=== PATIENT | female | born 1975 | race Two or more races ===

== ENCOUNTER 2020-06-29 14:41 | Outpatient (CLI) | payer MEDICARE, MEDICAID, SELFPAY ==
--- NOTE | ~2020-06-29 | US_ITS ---
EXAMINATION: US soft tissue chest DATE: 06/29/2020 15:07 INDICATION: Left supraclavicular lump. TECHNIQUE: Multiple grayscale ultrasound images of the supraclavicular regions were obtained. COMPARISON: None FINDINGS: There is no abnormal mass or lymphadenopathy in the patient's area of concern in left supra clavicular region. IMPRESSION: 1. No abnormal mass or lymphadenopathy in the patient's area of concern in left supraclavicular regio n. Reviewed, dictated and finalized at location A. E ROOM LABORER IMPRESSION: 1. No abnormal mass or lymphadenopathy in the patient's area of concern in left supraclavicular region.
== END 2020-06-29 14:42 | disposition home or self-care (01) ==
LOC: ANHIMG 14:46
PROVIDERS: PCP Family Medicine; Visit Provider Family Medicine
DX: D17.30 Benign lipomatous neoplasm of skin and subcutaneous tissue of unspecified sites (principal)
CPT/HCPCS: 76604

== ENCOUNTER 2021-09-12 08:35 | Outpatient (CLI) | payer OTHER, SELFPAY ==
--- NOTE | 2021-09-12 | EST_ITS ---
Patient Info Name: Nuzhat Atkinson Age: 46 years : 1975 Gender: Female Ht: 62 in Wt: 230 lbs BSA: 2.20 m2 HR: 69 bpm BP: 112 / 75 mmHg Heart Rhythm: Sinus Rhythm Exam Date: 09/12/2021 9:02 AM Exam Location: [facility] Stress Patient Status: Outpatient Admit Date: 09/12/2021 Staff Ordering Physician: Nilson, Dayan Lyons MD Attending Provider: Nilson, Dayan Lyons MD Exercise Technologist: Pamela Solano CT Exercise Physician: Keegan Shelton DO Exam Type: CA stress test treadmill Study Info Indications R07.9 - Chest pain, unspecified A treadmill exercise stress test was performed. Summary 1. 1. Negative Gaurav exercise stress test for ischemic ST changes by ECG criteria. 2. 2. Poor functional capacity, achieving 5.9 METs of workload. 3. 3. Appropriate HR response to exercise. 4. 4. Appropriate HR recovery at 1 minute post exercise. 5. 5. No imaging with stress testing. 6. 6. Patient informed of the above results. Protocol: Gaurav Stress ECG Details Stage: REST Duration (min): 1 min : 50 sec Speed (mph): 0.0 Grade (%): 0 HR (bpm): 71 SBP (mmHg): 112 DBP (mmHg): 75 METS: --- Stage: REST Duration (min): 9 min : 6 sec Speed (mph): 0.0 Grade (%): 0 HR (bpm): 74 SBP (mmHg): 112 DBP (mmHg): 75 METS: --- Stage: STAGE 1 Duration (min): 1 min : 0 sec Speed (mph): 1.7 Grade (%): 10 HR (bpm): 109 SBP (mmHg): 112 DBP (mmHg): 75 METS: --- Stage: STAGE 1 Duration (min): 2 min : 0 sec Speed (mph): 1.7 Grade (%): 10 HR (bpm): 127 SBP (mmHg): 112 DBP (mmHg): 75 METS: --- Stage: STAGE 1 Duration (min): 3 min : 0 sec Speed (mph): 1.7 Grade (%): 10 HR (bpm): 136 SBP (mmHg): 189 DBP (mmHg): 105 METS: --- Stage: STAGE 2 Duration (min): 0 min : 46 sec Speed (mph): 2.5 Grade (%): 12 HR (bpm): 147 SBP (mmHg): 178 DBP (mmHg): 102 METS: --- Stage: RECOVERY Duration (min): 0 min : 13 sec Speed (mph): 0.0 Grade (%): 0 HR (bpm): 147 SBP (mmHg): 178 DBP (mmHg): 102 METS: --- Stage: RECOVERY Duration (min): 1 min : 13 sec Speed (mph): 0.0 Grade (%): 0 HR (bpm): 128 SBP (mmHg): 178 DBP (mmHg): 102 METS: --- Stage: RECOVERY Duration (min): 2 min : 13 sec Speed (mph): 0.0 Grade (%): 0 HR (bpm): 102 SBP (mmHg): 178 DBP (mmHg): 102 METS: --- Stage: RECOVERY Duration (min): 3 min : 13 sec Speed (mph): 0.0 Grade (%): 0 HR (bpm): 89 SBP (mmHg): 176 DBP (mmHg): 76 METS: --- Stage: RECOVERY Duration (min): 3 min : 19 sec Speed (mph): 0.0 Grade (%): 0 HR (bpm): 84 SBP (mmHg): 176 DBP (mmHg): 76 METS: --- Rest HR: 74 bpm Peak HR: 147 bpm Rest Sys BP: 112 mmHg Peak Sys BP: 189 mmHg Max Pred HR: 172 bpm % Max Pred HR: 85 % Target HR: 146 bpm Max RPP: 27,783 bpm*mmHg Peres Score:
== END 2021-09-12 08:36 | disposition home or self-care (01) ==
LOC: ANHCARD 08:36
PROVIDERS: PCP Family Medicine; Visit Provider Family Medicine
DX: R07.89 Other chest pain (principal)
CPT/HCPCS: 93017

== ENCOUNTER 2023-08-06 10:03 | Outpatient (CLI) | payer MEDICARE, MEDICAID, SELFPAY ==
--- NOTE | ~2023-08-06 | MM_ITS ---
EXAMINATION: MM screening cecilio BI w nhan HISTORY: Baseline screening mammogram examination TECHNIQUE: Craniocaudal and mediolateral oblique 3-D tomosynthesis images were obtained and synthetic 2-D images were generated. CAD analysis was submitted and interpreted. COMPARISON: No prior mammogram; baseline. BREAST PARENCHYMAL COMPOSITION: The breasts are heterogeneously dense, which may obscure small masses . FINDINGS: Multiple grouped granular grouped calcifications are noted in the anterior central left fernando ast. Diagnostic left mammogram with magnification views is recommended, in addition to left breast ul trasound examination. Approximately 4 x 7 mm mass is noted in the posterior lower inner left breast. Diagnostic mammogram S pot images of this area are recommended in addition to ultrasound examination. No suspicious mass, architectural distortion, malignant calcification, skin thickening or retraction of either breast is noted otherwise. IMPRESSION: 1. Grouped indeterminate granular appearing microcalcifications of left breast; magnification views a nd ultrasound are recommended 2. Approximately 4 x 7 mm mass in the posterior lower inner left breast; diagnostic mammogram Spot co mpression views and ultrasound are recommended. BI-RADS Category 0: Incomplete: Needs additional imaging evaluation. Reviewed, dictated and finalized at location A. IMPRESSION: 1. Grouped indeterminate granular appearing microcalcifications of left breast; magnification views and ultrasound are recommended 2. Approximately 4 x 7 mm mass in the posterior lower inner left breast; diagno stic mammogram Spot compression views and ultrasound are recommended. BI-RADS Category 0: Incomplete: Needs additional imaging evaluation.
== END 2023-08-06 10:04 | disposition home or self-care (01) ==
PROVIDERS: PCP Family Medicine; Visit Provider Family Medicine
DX: Z12.31 Encounter for screening mammogram for malignant neoplasm of breast (principal); R92.8 Other abnormal and inconclusive findings on diagnostic imaging of breast
CPT/HCPCS: 77063; 77067

== ENCOUNTER 2023-09-07 11:17 | Outpatient (CLI) | payer MEDICARE, MEDICAID, SELFPAY ==
--- NOTE | ~2023-09-07 | MMUS_ITS ---
EXAMINATION: MM diagnostic cecilio LT w nhan, US breast LT complete HISTORY: Grouped indeterminate granular appearing microcalcifications left breast and approximately 4 x 7 mm mass in the posterior lower inner left breast TECHNIQUE: Additional 3-D tomosynthesis images of the left breast were performed and synthetic 2-D im ages were generated. CAD analysis was submitted and interpreted. High resolution complete left breast ultrasound examination including all 4 quadrants and subareolar area was performed. COMPARISON: August 06, 2023 bilateral screening mammogram FINDINGS: MAMMOGRAPHIC FINDINGS: There is a linear array rounded and granular appearing indeterminate microcalcifications in the anter ior upper central left breast. The greatest concentration is noted at the posterior aspect of this co llection, where stereotactic biopsy is recommended. Two closely associated approximately 6 mm and 7 mm low-density circumscribed opacities are noted in t he lower central left breast approximately 8.5-10 cm deep to the nipple on CC projection. The low den sity and circumscribed margins margins suggest probable benign process. The heterogeneously dense fibroglandular stroma may obscure additional masses. Complete left breast u ltrasound examination was performed. ULTRASOUND: 6:00 3 cm from nipple: Parallel oval circumscribed 3.7 x 7 x 8 mm circumscribed sonolucency consisten t with benign cyst 10:00 6 cm from nipple: Bilobed 2.9 x 2.5 x 5.3 mm circumscribed sonolucency without internal vascula rity or posterior shadowing, consistent with benign process, likely a small cyst IMPRESSION: 1. Indeterminate linear array of grouped microcalcifications in the upper central left breast 2. Stereotactic biopsy of these microcalcifications is recommended BI-RADS category 4, suspicious findings. Dr. Palomino telephoned the report and stereotactic biopsy recommendation for the upper central left angeli st indeterminate microcalcifications on September 07, 2023 at 1355 hours to [employer] voicemail for Dr. Devine. Reviewed, dictated and finalized at location B. IMPRESSION: 1. Indeterminate linear array of grouped microcalcifications in the upper centr al left breast 2. Stereotactic biopsy of these microcalcifications is recommended BI-RADS category 4, suspicious findings. Dr. Palomino telephoned the report and stereotactic biopsy recommendation [facility] breast indeterminate microcalcifications on September 07, 2023 at 1 355 hours to [employer] voicemail for Dr. Devine. IMPRESSION: 1. Indeterminate linear array of grouped microcalcifications in the upper centr al left breast 2. Stereotactic biopsy of these microcalcifications is recommended BI-RADS category 4, suspicious findings. Dr. Palomino telephoned the [facility] indeterminate microcalcifications on September 07, 2023 at 1 355 hours to [employer] voicemail for Dr. Devine.
== END 2023-09-07 11:18 | disposition home or self-care (01) ==
LOC: ANHIMG 11:19
PROVIDERS: PCP Family Medicine; Visit Provider Family Medicine
DX: R92.8 Other abnormal and inconclusive findings on diagnostic imaging of breast (principal)
CPT/HCPCS: 76641; 77061; 77065; G0279

== ENCOUNTER 2023-09-27 09:25 | Outpatient (CLI) | payer MEDICARE, MEDICAID, SELFPAY ==
--- NOTE | ~2023-09-27 | MM_ITS ---
MM post biopsy diagnostic LT, MM stereotactic specimen LT, MM stereotactic bx LT EXAMINATION: MM post biopsy diagnostic LT, MM stereotactic specimen LT, MM stereotactic bx LT DATE: Delmer Mcallister M.D. INDICATION: Abnormal calcifications in the left breast. Stereotactic core biopsy is requested evalua te for malignancy.] TECHNIQUE AND FINDINGS: The risks and potential benefits of the procedure were discussed with the patient and written informe d consent was obtained. The patient was placed in the prone position clustered at the table with the left breast in craniocaudal compression, and the area of interest was localized and targeted utilizi ng digital imaging with stereotaxis. After sterile preparation of the skin, 1% lidocaine was utilized for local anesthesia at the skin pun cture site and 1% lidocaine with epinephrine was utilized for deeper local anesthesia/is about the bi opsy site. A 9G Tier 1 Performance vacuum assisted biopsy needle was advanced to the level of the calcification o f interest from a cephalad approach utilizing stereotactic guidance and a total of 6 tissue core biop sies were obtained. A specimen radiograph demonstrates that the calcifications of interest are included within the tissue cores. A tissue marker clip was then placed at the biopsy site. The needle was removed and hemosta sis was achieved. The patient tolerated the procedure well and there is no evidence of significant i mmediate complication. The patient was given verbal as well as written postprocedural instructions p rior to discharge from the department. Tissue cores were submitted to surgical pathology for histolo gic analysis. A 2-view left unilateral digital mammogram was obtained post procedure and this demonstrates that the tissue marker clip is in expected position.] IMPRESSION: 1. Successful stereotactic biopsy of calcifications in the upper inner quadrant of the left breast, followed by tissue marker clip placement. Please refer to pathology report for histologic analysis. Reviewed, dictated and finalized at location B. IMPRESSION: 1. Successful stereotactic biopsy of calcifications in the upper inner quadran t of the left breast, followed by tissue marker clip placement. Please refer t o pathology report for histologic analysis. IMPRESSION: 1. Successful stereotactic biopsy of calcifications in the upper inner quadran t of the left breast, followed by tissue marker clip placement. Please refer t o pathology report for histologic analysis.
== END 2023-09-27 09:26 | disposition home or self-care (01) ==
PROVIDERS: PCP Family Medicine; Visit Provider Family Medicine
DX: R92.8 Other abnormal and inconclusive findings on diagnostic imaging of breast (principal)
CPT/HCPCS: 19081; 77065; 88305

== ENCOUNTER 2023-11-30 07:51 | Outpatient (CLI) | payer MEDICARE, MEDICAID, SELFPAY ==
--- NOTE | ~2023-11-30 | XR_ITS ---
EXAMINATION: XR barium swallow DATE: 11/30/2023 08:42 INDICATION: Esophageal dysphagia. TECHNIQUE: The patient drank thick barium, gas-producing crystals, and thin barium. Fluoroscopy of th e hypopharynx and esophagus was performed. Fluoroscopy exposure time was 0.3 minutes. The total numbe r of images was 214. The dose-area product was 2.581 Gy-cm^2. COMPARISON: None. FINDINGS: There is no mass or stricture of the esophagus. Esophageal motility is normal. There is no hiatal hernia. There was no gastroesophageal reflux with provocative maneuvers. IMPRESSION: 1. Normal esophagram. Reviewed, dictated and finalized at location A. IMPRESSION: 1. Normal esophagram.
== END 2023-11-30 07:52 | disposition home or self-care (01) ==
PROVIDERS: PCP Nurse Practitioner Family
DX: R13.19 Other dysphagia (principal)
CPT/HCPCS: 74220

== ENCOUNTER 2023-12-06 10:53 | Outpatient (CLI) | payer MEDICARE, MEDICAID, SELFPAY ==
--- NOTE | ~2023-12-06 | US_ITS ---
EXAMINATION: US pelvic complete w TV INDICATION: Abnormal vaginal bleeding Comparison:No prior studies for comparison. TECHNIQUE: Multiple transabdominal and endovaginal sonographic images of the pelvis performed. FINDINGS: The uterus measures 16 x 6.6 x 7.6 cm. Uterus is diffusely heterogeneous with multiple uter ine fibroids which are ill-defined and heterogeneous. Largest fibroid measures 5.9 cm. The endometria l complex measures 7. The ovaries are not visualized. There is no free fluid in the pelvis. There are no abnormal masses seen on either side. IMPRESSION: 1. Enlarged uterus containing multiple fibroids, largest measuring 5.9 x 4 x 4.6 cm. Reviewed, dictated and finalized at location B. IMPRESSION: 1. Enlarged uterus containing multiple fibroids, largest measuring 5.9 x 4 x 4. 6 cm.
== END 2023-12-06 10:54 | disposition home or self-care (01) ==
LOC: ANHIMG 10:54
PROVIDERS: PCP Nurse Practitioner Family; Visit Provider Obstetrics & Gynecology
DX: N93.9 Abnormal uterine and vaginal bleeding, unspecified (principal); D25.9 Leiomyoma of uterus, unspecified
CPT/HCPCS: 76830; 76856

== ENCOUNTER 2023-12-10 05:52 | Emergency (ER) | payer MEDICARE, MEDICAID, SELFPAY ==
[2023-12-10 05:59] VITALS: BP 144/98; PULSE 94; RESP 15; TEMP 36.8; O2SAT 97
--- NOTE | 2023-12-10 06:00 | ED.ASTHMA ---
HPI - Asthma General Chief Complaint: Asthma Stated Complaint: asthma Time Seen by Provider: 12/10/23 05:55 History of Present Illness HPI Narrative: The patient has history of asthma, her apartment i s being sprayed for bedbugs and she thinks that the fumes are causing her problems with her breathing and making her feel like her throat is sore. No GI upset or itchy skin Related Data Home Medications Medication Instructions Recorded Confirmed albuterol sulfate 90 mcg/actuation inhalation 11/09/23 11/09/23 aerosol inhaler famotidine 40 mg tablet mg PO 11/09/23 11/09/23 fluticasone 500 mcg-salmeterol 50 inhalation 11/09/23 11/09/23 mcg/dose blistr powdr for inhalation (Advair Diskus) hydrochlorothiazide 25 mg tablet mg PO 11/09/23 11/09/23 ipratropium 0.5 mg-albuterol 3 mg ml inhalation 11/09/23 11/09/23 (2.5 mg base)/3 mL nebulization soln lisinopril 5 mg tablet mg PO 11/09/23 11/09/23 omeprazole 20 mg capsule,delayed mg PO 11/09/23 11/09/23 release triamcinolone acetonide 0.025 % applic topical 11/09/23 11/09/23 topical cream Allergies Allergy/AdvReac Type Severity Reaction Status Date / Time No Known Allergies Allergy Verified 12/10/23 06:04 Review of Systems Review of Systems: All systems reviewed & are unremarkable except as noted in HPI and below PMFSH Past Medical History Medical History (Updated 12/10/23 @ 07:07 by Isabell Ziegler MD) Asthma Diabetes type 2, controlled Hypertension Surgical History Surgical History (Updated 11/09/23 @ 08:31 by Francine Rudolph MA) H/O breast biopsy S/P skin biopsy Social History Social History (Updated 11/09/23 @ 08:32 by Francine Rudolph MA) Smoking status: Never smoker Alcohol intake: never Substance use: never Substance use type: does not use Do You Feel Safe in your Home?: Yes Lack of Transportation: No Lack of Food: Never True Current Housing: Decline to Answer Concerned About Future Housing: No Difficulty Paying Gas/Electric Bills: No Difficulty Paying for Meds: No Currently Unemployed: No Education: High School Diploma/GED Difficulty w/ Childcare or Family Care: No Living arrangements: alone Additional occupation/education comments: disability/social security Gender identity (if verbalized by the patient): Female Sexual Orientation (if Verbalized by the Patient): Straight or Heterosexual Exam Narrative: EXAMINATION OF ORGAN SYSTEMS/BODY AREAS: Constitutional: Vital signs per nursing GENERAL:[No acute distress, non-toxic appearing.] HEAD: Normal with no signs of head trauma. EYES: EOMI, conjunctiva normal ENT: Clear normal voice; no angioedema LUNGS: Wheezing bilaterally HEART: [Regular rate and rhythm] ABD: [Soft], [nontender to palpation] EXT: Normal range of motion SKIN: [No rashes or lesions.] NEURO: [Alert and oriented x 3. No gross focal sensory or strength deficits.] PSYCH: Normal affect Course Vital Signs Vital signs: Vital Signs Temperature 98.2 F 12/10/23 05:59 Pulse Rate 94 12/10/23 05:59 Respiratory Rate 15 12/10/23 05:59 Blood Pressure 144/98 H 12/10/23 05:59 Pulse Oximetry 97 12/10/23 05:59 Oxygen Delivery Room Air 12/10/23 05:59 Temperature 98.1 F 12/10/23 06:15 Pulse Rate 86 12/10/23 06:57 Respiratory Rate 15 12/10/23 06:57 Blood Pressure 146/93 H 12/10/23 06:57 Pulse Oximetry 100 12/10/23 06:57 Oxygen Delivery Room Air 12/10/23 06:15 MDM - Asthma MDM Narrative Medical decision making narrative: ED COURSE AND MEDICAL DECISION MAKINF with acute dyspnea and wheezing likely due to acute asthma exacerbation based on history and exam. She has no signs of anaphylaxis, shows no signs of lisinopril induced angioedema without any swelling to her lips, tongue, or any changes to her voice Patient is hemodynamically stable. Nebulizer treatments are started and steroids given orally. Patient monitored in the
[2023-12-10] MEDS: ALBUTEROL SULFATE NEB 2.5 MG/3 ML INH 15 MG INHALATION (06:11)
[2023-12-10] MEDS: IPRATROPIUM BR 0.02% INH SOLN 0.5 MG/2.5 ML VIAL 1 MG INHALATION (06:11)
[2023-12-10 06:15] VITALS: BP 143/98; PULSE 87; RESP 22; TEMP 36.7; O2SAT 100
[2023-12-10 06:16] VITALS: PULSE 87; RESP 26
[2023-12-10] MEDS: predniSONE 20 MG TABLET 40 MG PO (06:22)
[2023-12-10 06:26] VITALS: BP 151/94; PULSE 79; RESP 15; O2SAT 100
[2023-12-10 06:57] VITALS: BP 146/93; PULSE 86; RESP 15; O2SAT 100
[2023-12-10 07:13] VITALS: PULSE 94; RESP 20
== END 2023-12-10 08:07 | disposition home or self-care (01) ==
PROVIDERS: Emergency Provider Emergency Medicine; PCP Nurse Practitioner Family
DX: J45.901 Unspecified asthma with (acute) exacerbation (principal); I10 Essential (primary) hypertension; E11.9 Type 2 diabetes mellitus without complications; Z79.899 Other long term (current) drug therapy
CPT/HCPCS: 94640; 99283; 99284; J7512

== ENCOUNTER 2024-02-06 06:32 | Emergency (ER) | payer MEDICARE, MEDICAID, SELFPAY ==
[2024-02-06] VITALS (10 sets, daily range): BP systolic 140–176; BP diastolic 80–97; PULSE 73–85; RESP 15–20; TEMP 36.6–36.8; O2SAT 97–100
--- NOTE | ~2024-02-06 | XR_ITS ---
Clinical Indication: Shortness of breath PA and lateral views of the chest: Comparison: None Findings: Hazy opacity in the right supra hilar region is likely related to the anterior right first rib. Lungs are otherwise clear. Cardiomediastinal silhouette is within normal limits. Bones and soft tissues are unremarkable. Impression: Density at the right supra hilar region is felt to be most likely related to the anterior right first rib. Lungs are otherwise clear. Consider chest CT to more definitively exclude pulmonary abnormality . Reviewed, dictated and finalized at location M. Impression: Density at the right supra hilar region is felt to be most likely related to th e anterior right first rib. Lungs are otherwise clear. Consider chest CT to mor e definitively exclude pulmonary abnormality.
--- NOTE | ~2024-02-06 | CT_ITS ---
EXAMINATION:CT diagnostic chest wo con DATE: 02/06/2024 08:59 INDICATION: Right suprahilar mass. Abnormal chest radiographs. TECHNIQUE: Computed tomography (CT) of the chest was performed without intravenous contrast. Automate d exposure control and iterative reconstruction technique were employed. The dose-length product (DLP ) was 500.19 mGy-cm. COMPARISON: Chest 2 views 02/06/2024 FINDINGS: The lungs demonstrate minimal atelectasis. There is mild scarring in paraspinal right lower lobe. No pleural effusion. There is left ventricular enlargement of the heart. No pericardial effusi on. There is severe thoracic spondylosis. IMPRESSION: 1. No abnormal lung mass. The chest radiograph finding correlates with hypertrophy of the junction of the right first rib and sternum. Reviewed, dictated and finalized at location A. IMPRESSION: 1. No abnormal lung mass. The chest radiograph finding correlates with hypertro phy of the junction of the right first rib and sternum.
--- NOTE | 2024-02-06 06:42 | ECG_ITS ---
Test Date: 2024-02-06 06:47:38 Measurements Intervals [place] Rate: 79 P: 56 WI: 161 QRS: -9 QRSD: 90 T: 31 QT: 357 QTc: 409 Interpretive Statements SINUS RHYTHM WITH SINUS ARRHYTHMIA LOW QRS VOLTAGE IN PRECORDIAL LEADS [QRS DEFLECTION < 1.0 mV IN CHEST LEADS] BORDERLINE ECG No previous ECG available for comparison Electronically Signed On 02-06-2024 07:25:11 CDT by Sven Albarran M.D.
[2024-02-06 06:57] LABS: Basophils Percent Auto 0.2 % (0.2-1.2); Eosinophils Absolute Auto 0.2 K/mm3 (0-0.3); Eosinophils Percent Auto 2.2 % (0-4.4); Hematocrit 40.2 % (37.0-47.0); Hemoglobin 12.7 g/dL (12.0-15.0); Immature Granulocyte Absolute 0.03 K/mm3 (0.00-0.031); Immature Granulocyte Percent A 0.3 % (0-0.5); Lymphocytes Absolute Auto 2.64 K/mm3 (0.9-3.2); Lymphocytes Percent Auto 30.8 % (18.3-44.2); Mean Corpuscular HGB Conc 31.6 g/dl (32-36); Mean Corpuscular Hemoglobin 27.5 pg (26-34); Mean Corpuscular Volume 87.2 fl (80-100); Mean Platelet Volume 8.7 fl (7.4-10.4); Monocytes Absolute Auto 0.7 K/mm3 (0.1-0.6); Monocytes Percent Auto 7.6 % (2.6-8.5); Neutrophils Absolute Auto 5.1 K/mm3 (1.3-6.7); Neutrophils Percent Auto 58.9 % (45.5-73.1); Platelet Count Result 324 k/mm3 (150-375); Red Blood Count 4.61 M/mm3 (4.2-5.4); Red Cell Distribution Width 15.6 % (11.5-14.5); White Blood Count 8.6 K/mm3 (4.5-10.0)
[2024-02-06 07:06] LABS: Alanine Aminotransferase 24 U/L (6-35); Alkaline Phosphatase 97 U/L (38-126); Anion Gap 6 mmol/L (4-12); Aspartate Amino Transferase 29 U/L (14-36); Bilirubin,Total 0.3 mg/dL (0.2-1.3); Blood Urea Nitrogen 8 mg/dL (7-17); Calcium 8.9 mg/dL (8.4-10.2); Carbon Dioxide 28 mmol/L (22-30); Chloride 104 mmol/L (98-107); Estimated CRCL calculation 111 ml/min; Estimated Glomerular Filt Rate > 60; Glucose 137 mg/dL (65-110); Potassium 3.8 mmol/L (3.4-5.0); Sodium 138 mmol/L (137-145)
--- NOTE | 2024-02-06 09:52 | ED.SOB ---
HPI - SOB/Dyspnea General Chief Complaint: Shortness of Breath/Dyspnea Stated Complaint: ASTHMA Time Seen by Provider: 02/06/24 07:02 History of Present Illness HPI Narrative: patient is a 48-year-old female who presents ER with increased shortness of breath at home. Reports has history of asthma is flaring. It responds well to her inhaler at home. She feels like she needs prednisone. No fevers or chills or sweats. No productive cough. No known sick contacts. No additional concerns. No chest discomfort. Related Data Home Medications Medication Instructions Recorded Confirmed famotidine 40 mg tablet mg PO 11/09/23 01/15/24 fluticasone 500 mcg-salmeterol 50 inhalation 11/09/23 01/15/24 mcg/dose blistr powdr for inhalation (Advair Diskus) hydrochlorothiazide 25 mg tablet mg PO 11/09/23 01/15/24 ipratropium 0.5 mg-albuterol 3 mg ml inhalation 11/09/23 01/15/24 (2.5 mg base)/3 mL nebulization soln lisinopril 5 mg tablet mg PO 11/09/23 01/15/24 omeprazole 20 mg capsule,delayed mg PO 11/09/23 01/15/24 release triamcinolone acetonide 0.025 % applic topical 11/09/23 01/15/24 topical cream rosuvastatin 10 mg tablet mg PO 01/15/24 01/15/24 triamcinolone acetonide 0.1 % applic topical 01/15/24 01/15/24 topical cream Allergies Allergy/AdvReac Type Severity Reaction Status Date / Time No Known Allergies Allergy Verified 01/15/24 13:32 Review of Systems Review of Systems: All systems reviewed & are unremarkable except as noted in HPI and below Constitutional: Constitutional: Reports no additional constitutional complaints Cardiovascular: Cardiovascular: Reports no additional cardiovascular complaints Respiratory: Respiratory: Denies chest congestion, Denies cough, Reports dyspnea and Reports wheezing Gastrointestinal: Gastrointestinal: Reports no additional gastrointestinal complaints [facility] Past Medical History Medical History (Updated 02/06/24 @ 09:53 by Hermilo Bryson MD) Asthma Diabetes type 2, controlled Hypertension Surgical History Surgical History (Updated 11/09/23 @ 08:31 by Francine Rudolph MA) H/O breast biopsy S/P skin biopsy Social History Social History (Updated 11/09/23 @ 08:32 by Francine Rudolph MA) Smoking status: Never smoker Alcohol intake: never Substance use: never Substance use type: does not use Do You Feel Safe in your Home?: Yes Lack of Transportation: No Lack of Food: Never True Current Housing: Decline to Answer Concerned About Future Housing: No Difficulty Paying Gas/Electric Bills: No Difficulty Paying for Meds: No Currently Unemployed: No Education: High School Diploma/GED Difficulty w/ Childcare or Family Care: No Living arrangements: alone Additional occupation/education comments: disability/social security Gender identity (if verbalized by the patient): Female Sexual Orientation (if Verbalized by the Patient): Straight or Heterosexual Exam Narrative: GENERAL: Well-appearing, well-nourished, and in no acute distress. HEAD: Normocephalic, atraumatic. ENT: Mucous membranes moist. NECK: Supple. CHEST: Clear to auscultation. No respiratory distress. HEART: Regular rate and rhythm. Normal peripheral pulses. EXTREMITIES: Normal range of motion. No edema. NEURO: Alert and oriented x3. PSYCH: Normal mood and affect. Course Course Emergency Course: Patient resting comfortably. Informed of imaging and lab results. Discharge home with prednisone. No significant abnormalities. Vital Signs Vital signs: Vital Signs Temperature 97.9 F 02/06/24 06:34 Pulse Rate 85 02/06/24 06:34 Respiratory Rate 18 02/06/24 06:34 Blood Pressure 166/95 H 02/06/24 06:34 Pulse Oximetry 97 02/06/24 06:34 Oxygen Delivery Room Air 02/06/24 06:34 Temperature 97.9 F 02/06/24 10:17 Pulse Rate 78 02/06/24 10:17 Respiratory Rate 16 02/06/24 10:17 Blood Pressure 140/88 02/06/24 10:17
== END 2024-02-06 10:34 | disposition home or self-care (01) ==
PROVIDERS: Emergency Medicine; Emergency Provider Emergency Medicine; PCP Nurse Practitioner Family
DX: J45.901 Unspecified asthma with (acute) exacerbation (principal); E11.9 Type 2 diabetes mellitus without complications; I10 Essential (primary) hypertension; Z79.899 Other long term (current) drug therapy
CPT/HCPCS: 36415; 71046; 71250; 80053; 85025; 93005; 99284

== ENCOUNTER 2024-04-05 03:58 | Emergency (ER) | payer MEDICARE, MEDICAID, SELFPAY ==
[2024-04-05] VITALS (7 sets, daily range): BP systolic 150–169; BP diastolic 90–96; PULSE 79–98; RESP 15–24; TEMP 36.3–36.6; O2SAT 98–100
--- NOTE | ~2024-04-05 | XR_ITS ---
EXAMINATION: XR chest 2V DATE: 04/05/2024 07:52 INDICATION: Shortness of breath. TECHNIQUE: Frontal and lateral views of the chest were obtained. COMPARISON: Chest 2 views 02/06/2024, chest CT 02/06/2024 FINDINGS: There is no pneumonia, pleural effusion, or pneumothorax. The heart size is normal. IMPRESSION: 1. No acute cardiopulmonary disease. Reviewed, dictated and finalized at location [facility]. [facility]
--- NOTE | 2024-04-05 07:05 | ED_ITS ---
HPI - Asthma General Chief Complaint: Asthma Stated Complaint: asthma Time Seen by Provider: 04/05/24 06:56 Source: patient Mode of arrival: ambulatory Limitations: no limitations History of Present Illness HPI Narrative: Patient presents with concern for an asthma flare. She notes that her asthma has not been well controlled over the past few days. She knows that weather changes are triggers for her and believes this is the cause. She has never required BiPAP or intubation for her asthma. She has medications at home but she did not use them because she states that she gets no relief from them when she is having an exacerbation. Her medications at home include albuterol inhaler, a nebulizer, and Advair 500/50. She denies needing any refills of any of these medications as she has plenty. She has both a primary care physician and she recently saw a ship harbor pilot here at [facility]. She has had a nonproductive cough. Denies any fevers or chills. Denies any lower extremity edema. She notes that she can hear and feel herself wheezing. Related Data Home Medications Medication Instructions Recorded Confirmed famotidine 40 mg tablet mg PO 11/09/23 02/18/24 hydrochlorothiazide 25 mg tablet mg PO 11/09/23 02/18/24 lisinopril 5 mg tablet mg PO 11/09/23 02/18/24 omeprazole 20 mg capsule,delayed mg PO 11/09/23 02/18/24 release triamcinolone acetonide 0.025 % applic topical 11/09/23 02/18/24 topical cream rosuvastatin 10 mg tablet mg PO 01/15/24 02/18/24 triamcinolone acetonide 0.1 % applic topical 01/15/24 02/18/24 topical cream metformin 500 mg tablet 500 mg PO BID 02/18/24 02/18/24 Allergies Allergy/AdvReac Type Severity Reaction Status Date / Time No Known Allergies Allergy Verified 04/05/24 03:59 [facility] Past Medical History Medical History Asthma Diabetes type 2, controlled Hypertension Surgical History Surgical History H/O breast biopsy S/P skin biopsy Social History Social History Smoking status: Never smoker Alcohol intake: never Substance use: never Substance use type: does not use Do You Feel Safe in your Home?: Yes Lack of Transportation: No Lack of Food: Never True Current Housing: Decline to Answer Concerned About Future Housing: No Difficulty Paying Gas/Electric Bills: No Difficulty Paying for Meds: No Currently Unemployed: No Education: High School Diploma/GED Difficulty w/ Childcare or Family Care: No Living arrangements: alone Additional occupation/education comments: disability/social security Gender identity (if verbalized by the patient): Female Sexual Orientation (if Verbalized by the Patient): Straight or Heterosexual Exam Narrative: GENERAL: Well-appearing, well-nourished, and in no acute distress. HEAD: Normocephalic, atraumatic. EYES: Non injected, non icteric ENT: Nares clear, no rhinorrhea or epistaxis. NECK: Supple. CHEST: Speaking in full sentences. No respiratory distress. No accessory muscle usage. Not tripoding. Resting comfortably, nonlabored. Patient does have end-expiratory wheezes bilaterally although right greater than left and primarily at the apices more than at the bases. HEART: Regular rate and rhythm. . ABDOMEN: Soft, nondistended. EXTREMITIES: Normal range of motion. No lower extremity edema. SKIN: Warm, dry, no rash. NEURO: No focal deficits. Alert and oriented x3. PSYCH: Normal mood and affect. Course Vital Signs Vital signs: Vital Signs Temperature 97.4 F L 04/05/24 04:01 Pulse Rate 98 04/05/24 04:01 Respiratory Rate 24 H 04/05/24 04:01 Blood Pressure 153/94 H 04/05/24 04:01 Pulse Oximetry 98 04/05/24 04:01 Oxygen Delivery Room Air 04/05/24 04:01 Temperature 97.8 F 04/05/24 07:25 Pulse Rate 79 04/05/24 08:26 Respiratory Rate 18 04/05/24 08:26 Blood Pressure 169/90 H 04/05/24 07:25 Pulse Oximetry 100 04/05/24 07:29 Oxygen Delivery Room Air 04/05/24 07:29 MDM - Asthma MDM Narrative Medical decision making narrative: Patient presents with concern for an asthma exacerbation. In the emergency department she is afebrile with vital signs notable for hypertension. She is also initially tachypneic but resolved on repeat assessment. She does have end-expiratory wheezes bilaterally although rate greater than left and at the apices more than bases. No prior BiPAP for intubation for asthma exacerbation and her asthma otherwise seems well controlled. Patient has medications at home and is not in need of refills of her baseline regimen which has not undergone any changes and she has recently seen a ship harbor pilot. Patient has had asthma exacerbations in November 2023 and January 2024 per review of EMR. While PE was considered, symptoms for several days consistent with known history and wheezes on exam, not hypoxic or tachycardia. At this time and planning on deferring labs in general. Patient is reassessed at approximately 8:00 a.m. after receiving 1st DuoNeb treatment and steroid. Wheezes are resolved however we will give an additional albuterol treatment while await the results of her viral panel given she is prone to having exacerbation bounceback when she gets into the cold air. Patient discharged home in stable condition with Rx for steroid course. Advised to use the other medications she already has including albuterol. Denies needing any refills. Advised to follow up with PCP / pulmonology and return to the ED with new/worsening symptoms. Differential Diagnosis Differential diagnosis: Likely Acute exacerbation, Status asthmaticus, Acute asthmatic bronchitis, PE, Pneumonia and other (Acute viral syndrome) Medical Records Attestation: I reviewed the patient's medical records. Medical records narrative: prior exacerbations as above Lab Data Attestation: I reviewed the patient's lab results. Lab results narrative: Viral swab negative. Labs: Lab Results 04/05/24 Range/Units 07:22 Influenza A (RT-PCR) Negative (Negative) Influenza B (RT-PCR) Negative (Negative) RSV (RT-PCR) Negative (Negative) SARS-CoV-2 RNA (RT-PCR) Negative (Negative) Imaging Data Radiologist's impression: MPRESSION: 1. No acute cardiopulmonary disease. Discharge Plan Discharge Clinical Impression: Asthma with acute exacerbation Patient Disposition: Home, Self-Care Condition: Stable Instructions: Antibiotic Form, Asthma (DC) Additional Instructions: It is important that in addition to the steroid prescribed you use the other asthma medications at home that you have previously been prescribed as these were can combination to help with chronic asthma as well as acute exacerbation. Follow-up with your primary care physician and ship harbor pilot. Return to the emergency department with any new or worsening symptoms. Prescriptions: New prednisone 20 mg tablet 40 mg PO DAILY 5 Days Qty: 10 0RF Rx Instructions: starting 04/06/24 (first dose received in ED 04/05); take before 9am when possible No Action famotidine 40 mg tablet PO triamcinolone acetonide 0.025 % cream topical omeprazole 20 mg capsule,delayed release(DR/EC) PO lisinopril 5 mg tablet PO hydrochlorothiazide 25 mg tablet PO triamcinolone acetonide 0.1 % cream topical rosuvastatin 10 mg tablet PO metformin 500 mg tablet 500 mg PO BID albuterol sulfate 90 mcg/actuation HFA aerosol inhaler 2 puff inhalation Q4-6H PRN (Reason: shortness of breath or wheezing) Qty: 8.5 3RF fluticasone propion-salmeterol [Advair Diskus] 500-50 mcg/dose blister with device 1 inh inhalation BID Qty: 180 3RF Rx Instructions: Rinse mouth and spit after each use. ipratropium-albuterol 0.5 mg-3 mg(2.5 mg base)/3 mL solution for nebulization 3 ml inhalation Q6H PRN (Reason: shortness of breath or wheezing) Qty: 180 3RF prednisone 10 mg tablet See Rx Instructions PO DAILY Qty: 34 0RF Rx Instructions: 4 tabs daily x 4 days; then 3 tabs daily x 3 days, then 2 tabs daily x 3 days, then 1 tab daily x 3 days. Follow-up/Referrals: Bloom,Mike Boyer APRN [Primary Care Provider] - Stand Alone Forms: Work/School Release IP Time of Disposition: 08:26
[2024-04-05] MEDS: predniSONE 20 MG TABLET 40 MG PO (07:23)
[2024-04-05] MEDS: IPRATROPIUM 0.5 MG/ALBUTEROL SULFATE 2.5 MG AMPUL.NEB 3 ML INHALATION (07:25)
[2024-04-05 08:18] LABS: Influenza A QL RT-PCR Negative (Negative); Influenza B QL RT-PCR Negative (Negative); RSV RNA, RT-PCR Negative (Negative); SARS-CoV-2 RNA PCR Negative (Negative)
[2024-04-05] MEDS: ALBUTEROL SULFATE NEB 2.5 MG/3 ML INH INHALATION (08:25)
== END 2024-04-05 08:44 | disposition home or self-care (01) ==
PROVIDERS: Emergency Provider Student in an Organized Health Care Education/Training Program; PCP Nurse Practitioner Family
DX: J45.901 Unspecified asthma with (acute) exacerbation (principal); Z20.822 Contact with and (suspected) exposure to COVID-19; E11.9 Type 2 diabetes mellitus without complications; I10 Essential (primary) hypertension; Z79.84 Long term (current) use of oral hypoglycemic drugs; Z79.899 Other long term (current) drug therapy
CPT/HCPCS: 71046; 87637; 94640; 99283; 99284; J7512

== ENCOUNTER 2024-08-26 08:58 | Outpatient (CLI) | payer MEDICARE, MEDICAID, SELFPAY ==
--- OUTSIDE RECORDS SUMMARY | 2024-08-26 09:34 | XMS_ITS | Clinical Summary ---
Author Organization [facility] Address [address] [place] [address] Care Team Providers Care Software Lead Name Role Phone Dayan Devine MD Primary Care Provider [phone] Allergies No known active allergies Medications metFORMIN 500 MG tablet Take 500 mg by mouth 2 (two) times daily with meals. 04/21/2019 Active lisinopril 5 MG tablet Take 5 mg by mouth daily. 04/15/2019 Active VENTOLIN HFA 108 (90 Base) MCG/ACT inhaler Inhale 2 puffs into the lungs every 4 (four) hours as needed. 01/21/2019 Active fluticasone propionate 50 MCG/ACT nasal spray 1 spray by Nasal route daily as needed. 08/27/2018 Active ADVAIR DISKUS 500-50 MCG/DOSE inhaler Inhale 1 puff into the lungs 2 (two) times a day. 01/04/2019 Active methylPREDNISol one, GOPI, 4 MG tablet Use per packet instructions . Can take 6 TABLETS ON DAY ONE, 5 TABLETS DAY TWO, 4 TABLETS DAY THREE, 3 TABLETS DAY FOUR, 2 TABLETS DAY FIVE, AND 1 TABLET DAY SIX 1 each 08/31/2019 Active Family History Medical History Relation Comments Arthritis Father Asthma Father Cancer Father Diabetes Father Hypertension Father Stroke Father Asthma Mother COPD Mother Emphysema Paternal Grandfather Relation Status Comments Father Mother Paternal Grandfather Social History Tobacco Use Types Packs/Day Years Used Date Smoking Tobacco: Never Smokeless Tobacco: Never Alcohol Use Standard Drinks/Week Comments No 0 (1 standard drink = 0.6 oz pur e alcohol) Comments No Sex and Gender Information Value Date Recorded Sex Assigned at Not on file Legal Sex Female 9:30 AM CDT Gender Identity Not on file Sexual Orientation Not on file Last Filed Vital Signs Vital Sign Reading Time Taken Comments Blood Pressure 160/99 08/31/2019 11:41 AM CDT Pulse 82 08/31/2019 11:41 AM CDT Temperature 36.4 C (97.5 F) 08/31/2019 11:41 AM CDT Respiratory Rate 18 08/31/2019 11:4 1 AM CDT Oxygen Saturation 100% 08/31/2019 11: 41 AM CDT Inhaled Oxygen Concentration - - Weight 108.5 kg (239 lb 3.2 oz) 020 11:41 AM CDT Height 157.5 cm (5' 2 ) 08/31/2019 11:4 1 AM CDT Body Mass Index 43.75 08/31/2019 11:41 AM CDT Plan of Treatment Health Maintenance Due Date Last Done Comments Cervical Cancer Screening Pa p Smear (Age 30 to 64) Every 3 Years 1973 Colorectal Cancer Screening Colonoscopy (10 Years) 1973 Annual Physical 1976 Hepatitis C 1991 DTaP, Tdap and Td Vaccines ( 1 - Tdap) 1992 Hepatitis B Vaccines (1 of 3 - 19+ 3-dose series) 1992 Cervical Cancer Screening Pa p with HPV Testing (Age 30 to 64) Every 5 Years 2003 Cervical Cancer Screening with HPV 2003 Mammogram Screening 2013 Pneumococcal Vaccine: 50+ Ye ars (1 of 1 - PCV) 2023 Zoster Vaccines (1 of 2) 2023 COVID-19 Vaccine (1 - 2023-2 5 season) 2023 Meningococcal B Vaccine Aged Out No l onger eligible based on patient's age to complete this topic Meningococcal Vaccine Aged Out No bucky mirella eligible based on patient's age to complete this topic RSV Immunizations Under 20 Months Aged Out No longer eligible based on patient's age to complete this topic Insurance MEDICARE Member Subscriber Plan / Payer (Ef fective 2017-Present) Name:Sanket Atkinson Relation to Subscriber:Self Name:SANKET ATKINSON Payer ID:Not on file Group ID:Not on file Type:Indemnity Address: ATTN CLAIMS [id number] MEDICARE MEDICAID Care Teams Software Lead Relationship Specialty Start Date End Date Dayan Devine MD [address] [place] [address] [place] [address] PCP - General FAMILY PRACTICE 05/29/19
--- OUTSIDE RECORDS SUMMARY | 2024-08-26 09:34 | XMS_ITS | Encounter Summary ---
Author Organization [facility] Address [address] [place] [address] Care Team Providers Care High Pressure Operator Name Role Phone Charisma Dejesus MD Primary Care Provider [phone] Dayan Devine MD Primary Care Provider [phone] Encounter Details Date Type Department Care Team (Late st Contact Info) Description 10/05/[address] [facility] Conversion [address], [place] [id number] , Generic Conversion, Social History Tobacco Use Types Packs/Day Years Used Date Smoking Tobacco: Never Smokeless Tobacco: Never Alcohol Use Standard Drinks/Week Comments No 0 (1 standard drink = 0.6 oz pur e alcohol) Comments No Sex and Gender Information Value Date Recorded Sex Assigned at Not on file Legal Sex Female 9:30 AM CDT Gender Identity Not on file Sexual Orientation Not on file documented as of this encounter Plan of Treatment Not on file documented as of this encounter Visit Diagnoses Not on filedocumented in this encounter Care Teams High Pressure Operator Relationship Specialty Start Date End Date Charisma Dejesus MD [address] [address] PCP - General 10/09/16 05/28/19 Dayan Devine MD [address] [place] [id number] PCP - General FAMILY PRACTICE 05/29/19 documented as of this encounter
--- OUTSIDE RECORDS SUMMARY | 2024-08-26 09:34 | XMS_ITS | Data Portability ---
Author Organization [place] [facility] Main Office Address [address] [place] [address] Assessment No assessment recorded. Plan of Treatment Reminders Order Date Submit Date Provider Last Modified By Organization Details Last Modified Time Details Appointments Follow Up 30 2024 10:00A Murali Masterson NP Not available Not available Not available Lab HbA1c (hemoglob in A1c), blood [address] [place] [address] (Lab), [address] [place] [address], [id number], 07/31/2024 09:28:27 CMP, serum or plasma [address] [place] [address] (Lab), [address] [place] [address], [id number], 08/07/2024 08:46:01 lipid panel, serum [address] [place] [address] (Lab), [address] [place] [address], [address], 07/31/2024 09:28:28 hepatic function panel, serum [address] [place] [address] (Lab), [address] [place] [address] [address], [address], 07/31/2024 09:28:28 vitamin D, 25-hydrox y, total, serum [address] [place] [address] (Lab), [address] [place] [address], [address], 08/07/2024 08:46:01 CBC w/ auto diff 2024 025 [facility] (Lab), [address], [place], [address], 07/31/2024 09:28:27 iron + total iron-bind ing capacity (TIBC), serum 2024 025 [facility] (Lab), [address], [place], [address], 07/31/2024 09:28:27 ferritin, serum or plasma 2024 025 [facility] (Lab), [address], [place], [address], 07/31/2024 09:28:27 Referral None recorded. Procedures None recorded. Surgeries None recorded. Imaging None recorded. Medication Orders metformin 500 mg tablet 2024 025 [facility] [address] [place] [address], [id number], 07/16/2024 10:31:26 rosuvasta tin 10 mg tablet 2024 025 [facility]/Pharmacy #2510, [address] [place] [address], [id number], 07/16/2024 10:31:30 prednison e 20 mg tablet 2024 025 [facility]acy #2510, [address] [place], [address], 07/16/2024 10:31:27 Zithromax Z-Rocky 250 mg tablet 2024 025 [facility]/Pharmacy #2510, [address] [place], [address], 07/16/2024 10:31:31 Advair Diskus 500 mcg-50 mcg/dose powder for inhalatio n 2024 025 [facility]2510, [address] [place] [address], [address], 07/16/2024 10:31:27 albuterol sulfate HFA 90 mcg/actua tion aerosol inhaler 2024 025 [facility] [address] [place] [address], [address], 07/16/2024 10:31:29 ipratropi um 0.5 mg-albute rol 3 mg (2.5 mg base)/3 mL nebulizat ion soln 2024 025 [facility] [address] [place] [address], [id number], 07/16/2024 10:31:31 fluticaso ne propionat e 50 mcg/actua tion nasal spray,cali pension 2024 025 [facility] [address] [place] [address], [address], 07/16/2024 10:31:29 lisinopri l 5 mg tablet 2024 025 [facility] [address] [place] [address], [address], 07/16/2024 10:31:25 hydrochlo rothiazid e 25 mg tablet 2024 025 [facility] [address] [place] [address], [address], 07/16/2024 10:31:31 omeprazol e 20 mg capsule,d elayed release 2024 025 [facility] [address] [place] [address], [address], 07/16/2024 10:31:27 famotidin e 40 mg tablet 2024 025 [facility] [address] [place], [address], 07/16/2024 10:31:29 ferrous sulfate 325 mg (65 mg iron) tablet [address] [facility]/Pharmacy #6630, [address] [place], [address], 07/16/2024 10:31:28 Patient TargetsNo targets recorded. Patient Instructions Encounter Date Encounter Id Patient Instructions Last Modified By Organization Details Last Modified Time 07/16/2024 [id number] dementia rating scale-2* JEAN Not available 07/16/2024 11:03:48 multi-dimensiona l health assessment questionnaire* [email or web address] Not available 07/16/2024 10:31:14 care plan* [email or web address] Not available 06/28 10:31:13 advance directives: care instructions Not available 07/16/2024 10:31:14 advance care planning: care instructions Not available 07/16/2024 10:31:13 [place] Advance Directives [email or web address] Not available 07/16/2024 10:31:13 Reason for Referral None Reported. Results Created Date Observation Date Name Description Value Unit Range Abnormal Flag Note LastModifiedBy Organization Detail LastModifiedTime 02/14/2002/14/2024 urina lysis , dipst ick Leukocytes (reference range: negative megha/ l) Small Not Available [facility] [address], [place], [address], 02/14/2024 10:46:59 02/14/2002/14/2024 urina lysis , dipst ick Nitrite (reference rage: negative mg/dl) negati ve Not Available [facility] [address], [place], [address], 02/14/2024 10:46:59 02/14/2002/14/2024 urina lysis , dipst ick Urobilinogen (reference range: 0.2-1 mg/dl) 0.2 Not Available [facility] [address], [place], [address], 02/14/2024 10:46:59 02/14/2002/14/2024 urina lysis , dipst ick Protein (reference range: negative mg/dl) Negati ve Not Available [address], [place], [address], 02/14/2024 10:46:59 02/14/2002/14/2024 urina lysis , dipst ick pH (reference range: 5-7) 5.5 Not Available [address], [place], [address], 02/14/2024 10:46:59 02/14/2002/14/2024 urina lysis , dipst ick Blood (reference range: negative Warren/ l) Negati ve Not Available [address], [place], [address], 02/14/2024 10:46:59 02/14/2002/14/2024 urina lysis , dipst ick Specific [place] (reference range: 1.005-1.030) 1.025 Not Available [address], [place], [address], 02/14/2024 10:46:59 02/14/2002/14/2024 urina lysis , dipst ick Ketone (reference range: negative mg/dl) Negati ve Not Available [address], [place], [address], 02/14/2024 10:46:59 02/14/2002/14/2024 urina lysis , dipst ick Bilirubin (reference range: negative mg/dl) Negati ve Not Available [address], [place], [address], 02/14/2024 10:46:59 02/14/20 24 02/14/2024 urina lysis , dipst ick Glucose (reference range: negative mg/dl) Negati ve Not Available [address], [place], [address], 02/14/2024 10:46:59 02/14/20 24 02/14/2024 urina lysis , dipst ick Appearance Slight ly Cloudy Not Available [address], [place], [address], 02/14/2024 10:46:59 02/14/2002/14/2024 urina lysis , dipst ick Color Pale Yellow Not Available [address], [place], [address], 02/14/2024 10:46:59 06/09/19 25 06/09/2024 urina lysis , dipst ick Leukocytes (reference range: negative megha/ l) Trace Not Available [address], [place], [address], 06/09/2024 15:38:51 06/09/19 25 06/09/2024 urina lysis , dipst ick Nitrite (reference rage: negative mg/dl) negati ve Not Available [address], [place], [address], 06/09/2024 15:38:51 06/09/19 25 06/09/2024 urina lysis , dipst ick Urobilinogen (reference range: 0.2-1 mg/dl) 0.2 Not Available [address], [place], [address], 06/09/2024 15:38:51 06/09/19 25 06/09/2024 urina lysis , dipst ick Protein (reference range: negative mg/dl) Negati ve Not Available [address], [place], [address], 06/09/2024 15:38:51 06/09/19 25 06/09/2024 urina lysis , dipst ick pH (reference range: 5-7) 5.5 Not Available [address], [place], [address], 06/09/2024 15:38:51 06/09/19 25 06/09/2024 urina lysis , dipst ick Blood (reference range: negative Warren/ l) Negati ve Not Available [address], [place], [address], 06/09/2024 15:38:51 06/09/19 25 06/09/2024 urina lysis , dipst ick Specific [place] (reference range: 1.005-1.030) 1.030 Not Available [address], [place], [address], 06/09/2024 15:38:51 06/09/19 25 06/09/2024 urina lysis , dipst ick Ketone (reference range: negative mg/dl) Negati ve Not Available [address], [place], [address], 06/09/2024 15:38:51 06/09/19 25 06/09/2024 urina lysis , dipst ick Bilirubin (reference range: negative mg/dl) Negati ve Not Available [address], [place], [address], 06/09/2024 15:38:51 06/09/19 25 06/09/2024 urina lysis , dipst ick Glucose (reference range: negative mg/dl) Negati ve Not Available [address], [place], [address], 06/09/2024 15:38:51 06/09/19 25 06/09/2024 urina lysis , dipst ick Appearance Clear Not Available [address], [place], [address], 06/09/2024 15:38:51 06/09/19 25 06/09/2024 urina lysis , dipst ick Color Yellow Not Available [address], [place], [address], 06/09/2024 15:38:51 02/06/20 24 02/06/2024 CT, chest , w/o contr ast No observ ation record ed. [address], [place], [address], 02/07/2024 09:26:12 04/05/20 24 04/05/2024 XR, chest , 2 view No observ ation record ed. [email or web address] [address], [place], [address], 04/07/2024 14:58:18 Result Notes None recorded. Problems Name Problem SNOMED Code Status Onset Date Resolution Date Notes Provider Name and Address Organization Details Recorded Time Asthma 404297261 Active 2019 Not Available [facility] 3 06:14:23 Vitamin D deficiency 62141525 Active 2020 Not Available [facility] 3 06:14:23 Hypertensive disorder 32071227 Active 2017 Not Available [facility] 3 06:14:23 Prediabetes 536263772 Active 2018 Not Available [facility] 3 06:14:23 Hyperlipidemi a 56216470 Active 2022 Dayan Devine MD [address], [address], [place], [address] , [place] [facility] 3 12:10:55 Essential hypertension 16847526 Active 2022 Dayan Devine MD [address], [address], [place], [address] , [place] [facility] 3 12:10:58 Gastroesophag eal reflux disease without esophagitis 743859423 Active 2022 Dayan Devine MD [address], [address], [place], [address] , [place] [facility] 3 12:11:09 Dysuria 60227682 Active 2022 Dayan Devine MD [address], [address], [place], [address] , [place] [facility] 3 12:12:28 Type 2 diabetes mellitus 12336379 Active 2022 Dayan Devine MD [address], [address], [place], [address] , [place] [facility] 3 12:14:07 Anemia 423926204 Active 2022 Dayan Devine MD [address], [address], [place], [address] , [place] [facility] 3 07:47:21 Iron deficiency anemia 58104724 Active 2022 Dayan Devine MD [address], [address], [place], [address] , [place] [facility] 3 17:48:13 Eczema 69411886 Active 2023 Dayan Devine MD [address], [address], [place], [address] , [place] [facility] 4 11:38:55 Acute asthma 110728447 Active 2023 Dayan Devine MD [address], [address], [place], [address] , [facility] [employer] [facility] 4 13:44:46 Mammography abnormal 634573647 Active 2023 Dayan Devine MD [address], [place], [address] , [facility] [employer] [facility] 4 09:45:38 Eruption 153625576 Active 2023 Dayan Devine MD [address], [place], [address] , [facility] [employer] [facility] 4 10:27:08 Acute urinary tract infection 761120038 Active 2023 Dayan Devine MD [address], [place], [address] , [facility] [employer] [facility] 4 16:57:07 Urinary symptoms 838154231 Active 2023 Caroline Meek RN [facility] [place] [facility] [employer] 4 13:39:52 Tinea pedis 6803508 Active 2023 HEATHER Matthew [address], [place], [address] , [facility] [employer] 4 15:42:22 Acute upper respiratory infection 36599158 Active 2024 HEATHER Matthew [address], [place], [address] , [facility] [employer] 5 10:09:19 Problem Notes None recorded. Procedures Surgical History Date Name Laterality Status Provider Name and Address Organization Details Recorded Time 5 Medicare Wellness CPT Code, subsequent completed HEATHER Matthew [address], [place], [address], [facility] 07/16/2024 10:00:49 3 Medicare Wellness CPT Code, subsequent completed Sammi Pollock RN [facility] [employer] [facility] 04/03/2023 11:52:45 Imaging Results Imaging Date Name Status LastModified by Organ [facility] access hospital Details LastModified Time 02/06/2024 CT, chest, w/o contrast completed [facility] [address], [place], [address], 02/07/2024 09:26:12 04/05/2024 XR, chest, 2 view completed [email or web address] [facility] [address], [place], [address], 04/07/2024 14:58:18 Procedure Notes None recorded. Medical Equipment None Reported. Allergies No known drug allergies Medications Name Sig Start Date Stop Date Status Note LastModified by Organization Details LastModified Time amoxicillin 500 mg capsule TAKE 1 CAPSULE BY MOUTH EVERY 6 HOURS UNTIL FINISHED active Not Available Not Available No t Available metformin 500 mg tablet TAKE 2 TABLETS BY MOUTH TWICE A DAY 2024 active Not Available Not Available Not Avai lable prednisone 10 mg tablet PLEASE SEE ATTACHED FOR DETAILED DIRECTION S 07/16 completed Not Available Not Available Not Available doxycycline hyclate 100 mg capsule TAKE 1 CAPSULE BY MOUTH TWICE A DAY FOR 14 DAYS 04/10 completed Not Available Not Available Not Available ipratropium 0.5 mg-albutero l 3 mg (2.5 mg base)/3 mL nebulizatio n soln USE 1 VIAL PER NEBULIZER 4 TIMES A DAY NEEDED 2024 active Not Available Not Available Not Avai lable azithromyci n 250 mg tablet TAKE 2 TABLETS BY MOUTH TODAY, THEN TAKE 1 TABLET DAILY FOR 4 DAYS DIRECTED active Not Available Not Available No t Available benzonatate 200 mg capsule TAKE 1 CAPSULE BY MOUTH THREE TIMES A DAY NEEDED 09/08 completed Not Available Not Available Not Available famotidine 40 mg tablet Take 1 tablet every day by oral route. 2024 active Not Available Not Available Not Avai lable prednisone 20 mg tablet PLEASE SEE ATTACHED FOR DETAILED DIRECTION S active Not Available Not Available No t Available Tubersol 5 tub. unit/0.1 mL intradermal injection solution Inject 0.1 mL by intraderm al route. 07/16 completed TB test negat alireza. Read --L ML Not Available Not Available Not Available clobetasol 0.05 % topical cream APPLY A THIN LAYER TO THE AFFECTED AREA(S) BY TOPICAL ROUTE 2 TIMES PER DAY UP TO 14 DAYS 04/10 completed Not Available Not Available Not Available acetaminoph en 300 mg-codeine 30 mg tablet TAKE 1 TABLET BY MOUTH EVERY 4 TO 6 HOURS NEEDED FOR PAIN active Not Available Not Available No t Available triamcinolo ne acetonide 0.1 % topical cream APPLY A THIN LAYER TO THE AFFECTED AREA(S) BY TOPICAL ROUTE 2 TIMES PER DAY 07/16 completed Not Available Not Available Not Available terbinafine HCl 250 mg tablet TAKE 1 TABLET BY MOUTH EVERY DAY active Not Available Not Available No t Available triamcinolo ne acetonide 0.025 % topical cream PLEASE SEE ATTACHED FOR DETAILED DIRECTION S active Not Available Not Available No t Available oseltamivir 75 mg capsule TAKE 1 CAPSULE BY MOUTH TWICE A DAY FOR 5 DAYS 09/08 completed Not Available Not Available Not Available ferrous sulfate 325 mg (65 mg iron) tablet TAKE 1 TABLET BY MOUTH EVERY DAY active Not Available Not Available No t Available prednisone 50 mg tablet TAKE 1 TABLET BY MOUTH EVERY DAY 07/16 completed Not Available Not Available Not Available Advair Diskus 500 mcg-50 mcg/dose powder for inhalation INHALE 1 DOSE BY MOUTH TWICE DAILY. RINSE MOUTH AFTER USE dx J45.909 2024 active Not Available Not Available Not Avai lable omeprazole 20 mg capsule,del ayed release TAKE 1 CAPSULE BY MOUTH EVERY DAY 30 MINUTES BEFORE MORNING MEAL active Not Available Not Available No t Available lisinopril 5 mg tablet TAKE 1 TABLET BY MOUTH EVERY DAY 2024 active Not Available Not Available Not Avai lable hydrochloro thiazide 25 mg tablet TAKE 1 TABLET BY MOUTH EVERY DAY 2024 active Not Available Not Available Not Avai lable ergocalcife rol (vitamin D2) 1,250 mcg (50,000 unit) capsule TAKE 1 CAPSULE EVERY WEEK BY ORAL ROUTE. 07/16 completed Not Available Not Available Not Available methylpredn isolone 4 mg tablets in a dose pack 09/08 completed Not Available Not Available Not Available albuterol sulfate HFA 90 mcg/actuati on aerosol inhaler INHALE 2 PUFFS BY MOUTH EVERY 4 HOURS 2024 active Not Available Not Available Not Avai lable fluticasone propionate 50 mcg/actuati on nasal spray,suspe nsion SPRAY 2 SPRAYS INTO EACH NOSTRIL EVERY DAY 2024 active Not Available Not Available Not Avai lable ipratropium bromide 21 mcg (0.03 %) nasal spray SPRAY 2 SPRAYS INTO EACH NOSTRIL TWICE A DAY FOR 30 DAYS 04/10 completed Not Available Not Available Not Available Ventolin 90 mcg/actuati on aerosol inhaler Inhale 1 puff every day by inhalatio n route. 07/16 completed Not Available Not Available Not Available Ciprodex 0.3 %-0.1 % ear drops,suspe nsion active Not Available Not Available Not Available rosuvastati n 10 mg tablet TAKE 1 TABLET BY MOUTH EVERY DAY active Not Available Not Available No t Available nitrofurant oin monohydrate /macrocryst als 100 mg capsule TAKE 1 CAPSULE BY MOUTH EVERY 12 HOURS 07/16 completed Not Available Not Available Not Available lisinopril 02/14 completed Not Available Not Available Not Available Advair HFA 45 mcg-21 mcg/actuati on aerosol inhaler 2 puffs q12 hours 03/10 completed Not Available Not Available Not Available ferrous sulfate 324 mg (65 mg iron) tablet,phuc yed release TAKE 1 TABLET BY MOUTH EVERY DAY active Not Available Not Available No t Available Breo Ellipta 200 mcg-25 mcg/dose powder for inhalation active Not Available Not Available N ot Available Vitals Date Recorded Body height Provider Name an d Address Organization Details Last Updated DateTime 02/14/2024 157.48 cm Juanita Sutton RN [facility] [employer] 02/14/2024 10:29:25 Date Recorded Body height Body mass index (BMI) Body weight Body temperature Heart rate Oxygen saturation Oxygen saturation in Arterial blood by Pulse oximetry Systolic blood pressure Diastolic blood pressure Provider Name and Address Organization Details Last Updated DateTime 157.48 cm 43.9 kg/m2 079323. 17 g 97.34 [degF] 91 /min 98 % 98 % 134 mm[Hg] 76 mm[Hg] Sammi Pollock RN [facility] [employer] 11:56:09 Date Recorded Body height Provider Name an d Address Organization Details Last Updated DateTime 05/13/2024 157.48 cm [facility] 05/13/2024 16:45:38 Date Recorded Body height Provider Name an d Address Organization Details Last Updated DateTime 06/09/2024 157.48 cm [facility] 06/09/2024 16:20:26 Date Recorded Body height Body mass index (BMI) Body weight Body temperature Heart rate Oxygen saturation Oxygen saturation in Arterial blood by Pulse oximetry Pain severity - 0-10 verbal numeric rating [Score] - Reported Systolic blood pressure Diastolic blood pressure Provider Name and Address Organization Details Last Updated DateTime 157.48 cm 43.2 kg/m2 858322. 8 g 96.8 [degF] 95 /min 95 % 95 % 0 160 mm[Hg] 86 mm[Hg] Zahraa Dueñas MA [facility] 09:48:30 Social History Question Answer Notes LastModified by Organizat ion Details LastModified Time Tobacco Smoking Status Never Smoker Not Available [facility] 06/28/2022 06:07:14 Do You Have An Advance Directive? No Packet Given [id number] Information not available 06/28/2022 What Is Your Level Of Alcohol Consumption? None [id number] Information not available 06/28/2022 If You Are , What Was Your Level Of Alcohol Consumption Prior To ? None [id number] Information not available 06/28/2022 What Is Your Level Of Caffeine Consumption? Moderate [id number] Information not available 06/28/2022 In The 14 Days Before Symptom Onset, Have You Had Close Contact With A Laboratory-confir med COVID-19 While That Case Was Ill? No Information not available 07/16/2024 In The 14 Days Before Symptom Onset, Have You Had Close Contact With A Person Who Is Under Investigation For COVID-19 While That Person Was Ill? No Information not available 07/16/2024 Are You Currently Employed? No Information not available 07/16/2024 What Type Of Diet Are You Following? REGULAR [id number] Information not available 06/28/2022 Have There Been Any Changes To Your Family Or Social Situation? No Information no t available 07/16/2024 Do You Use Insect Repellent Routinely? Yes [id number] Information not available 06/28/2022 Where Do You Live? Apartment Information not available 07/16/2024 What Was The Date Of Your Most Recent Tobacco Screening? 07/16/2024 Information not available 07/16/2024 Do You Have Any Pets? No Information not available 07/16/2024 What Is Your Relationship Status? Single [id number] Information not available 06/28/2022 Do You Use Your Seat Belt Or Car Seat Routinely? Yes Information not available 07/16/2024 Do You Have Smoke And Carbon Monoxide Detectors In Your Home? Yes [id number] Information not available 06/28/2022 Are You Passively Exposed To Smoke? No Information no t available 07/16/2024 Are There Any Smokers In Your House? No Information not available 07/16/2024 Do You Participate In Social Media? Yes Information not available 07/16/2024 Do You Feel Stressed (tense, Restless, Nervous, Or Anxious, Or Unable To Sleep At Night)? [id number] Information not available 06/28/2022 Do You Use Any Illicit Or Recreational Drugs? No [id number] Information not available 06/28/2022 Do You Use Sunscreen Routinely? Yes [id number] Information not available 06/28/2022 Have You Recently Traveled Abroad? No Information not available 07/16/2024 Are You Currently In School? No Information not available 07/16/2024 Do You Have Any Dietary Restrictions? No [id number].72005 [id number] Information not available 06/28/2022 Do You Or Have You Ever Used Any Other Forms Of Tobacco Or Nicotine? No [id number] [id number] Information not available 06/28/2022 Sex: Unknown Functional Status Question Answer Note LastModified by Organizat ion Details LastModified Time What is your exercise level? Occasional [id number] Information not available 06/28/2022 Mental Status None recorded. Family History Relationship Description Onset Age of this Age Resolved Age Notes LastModified by Organization Details LastModified Time Father No current problems or disability [id number] Not available 06/28/2022 06:08:23 Mother No current problems or disability [id number] Not available 06/28/2022 06:08:23 Medical History No medical history recorded. Gynecological History Statement/Question Response How many live births 0 Date of Last Colonoscopy Most Recent Bone Density Date of LMP 07/12/2024 Date of Last Pap Smear Current Control Method None Most Recent Mammogram Obstetrics History GPAL:G 0 P 0 0 0 0 Type Value Multiple Births 0 Full Term 0 Induced 0 Spontaneous 0 Premature 0 Living 0 Ectopics 0 Total 0 Immunizations Vaccine Type Date Status Note Provider Nam e and Address Organization Details Recorded Time MMR 04/10/2024 completed HEATHER Matthew [address], [place], [address], [employer] 04/10/2024 12:56:41 Tdap 04/10/2024 completed HEATHER Matthew [address], [place], [address], [employer] 04/10/2024 12:56:41 MMR 05/13/2024 completed Caroline Meek RN [facility] [employer] 05/13/2024 16:42:27 Past Encounters Encounter ID Performer Location Encounter Start Date Encounter Closed Date Diagnosis/Indication Diagnosis SNOMED-CT Code Diagnosis ICD10 Code Diagnosis Note [id number] [facility] [address] [place] [address] 12/20/2020 00:00:00 12/20/2020 09:34:03 [id number] [facility] [address] [place] [address] 12/21/2020 00:00:00 12/22/2020 07:55:55 [id number] [facility] [address] [place] [address] 05/10/2021 00:00:00 05/10/2021 15:51:44 [id number] [facility] [place] [address] [facility] [address] [place] [address] 07/13/2021 00:00:00 07/13/2021 13:58:49 [id number] [facility] [place] [address] [facility] [address] [place] [address] 08/11/2021 00:00:00 08/11/2021 12:53:54 [id number] [facility] [place] [address] [facility] [address] [place] [address] 02/13/2022 00:00:00 02/26/2022 23:25:08 [id number] [facility] [place] [address] [facility] [address] [place] [address] 05/09/2022 00:00:00 05/09/2022 13:16:49 [id number] [facility] [place] [address] [facility] [address] [place] [address] 06/19/2022 00:00:00 06/25/2022 20:29:19 [id number] Dayan Devine MD [facility] [place] [address] [facility] [address] [place] [address] 04/03/2023 11:47:47 04/03/2023 12:26:45 Adult health examination 219737464 Z00.00 Declines vaccine for nowCologua rd order givenMammo gram order givenRecom mended pap smearCheck fasting labs Screening for disorder 704407772 Z13.9 Screening for malignant neoplasm of colon 316812397 Z12.11 Screening mammography 24 628293 Z12.31 Gynecologi c examination 86648291 Z01.419 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 Asthma 289071088 J45.90 9 stable Vitamin D deficiency 347 41797 E55.9 Hyperlipidemia 98653772 E78.5 Z79.899 stable Essential hypertension 48048325 I10 stable Type 2 shakir betes mellitus 80707564 E11.9 stable Gastroesop hageal reflux disease without esophagitis 644021720 K21.9 stable, refill given Dysuria 02584573 R30.0 [id number] Dayan Devine MD [facility] [address] [facility] [address] [place] [address] 04/16/2023 12:24:20 05/17/2023 04:02:08 [id number] Dayan Devine MD [facility] [address] [facility] [address] [place] [address] 07/10/2023 11:14:34 07/10/2023 11:54:22 Hyperlipidemia 93155234 E78.5 Z79.899 stable Iron defic iency anemia 23078660 D50.9 start iron once dailyf/u in 6 weeks Eczema 44204413 L30.9 discussed care of dry, sensitive skinshorte r, cooler showersavo id lotions/so aps/produc ts with perfumes/d yesemollie nt lotions regularly [id number] Dayan Devine MD [facility] [address] [place] [address] 09/03/2023 10:16:19 09/03/2023 10:46:13 Eruption 551898386 R21 call/retur n if no improvemen t in 1-2 days or sooner if neededrevi ewed s/s that warrant urgent/jodi rgent eval in meantime Asthma 277263204 J45.90 9 stable Vitamin D deficiency 347 55883 E55.9 Hyperlipidemia 70374993 E78.5 Z79.899 stable Essential hypertension 58120494 I10 stable Type 2 shakir betes mellitus 72125443 E11.9 stable Iron defic iency anemia 12770611 D50.9 start iron once dailyf/u in 6 weeks 09/03/23: has not taken iron supplement , she misplaced the [facility] labs [id number] Tiera Chu [facility] Primary Care [facility] [address] [facility] [address] [place] [address] 09/07/2023 14:47:50 09/07/2023 15:24:53 [id number] HEATHER Gonzalez [facility] [address] [facility] [address] [facility] [place] [address] 10/09/2023 14:01:37 10/09/2023 14:29:29 Mammography abnormal 134781507 R92.8 labs results discussed Asthma 862296416 J45.90 9 [id number] HEATHER Gonzalez [facility] [address] [facility] [address] [facility] [place] [address] 01/04/2024 09:54:05 01/04/2024 10:38:30 Asthma 120529950 J45.909 form to be completed Type 2 shakir betes mellitus 55339727 E11.9 forms completed [id number] HEATHER Matthew [facility] [address] [place] [address] 02/14/2024 10:10:29 02/14/2024 11:13:41 [id number] HEATHER Matthew [facility] [address] [place] [address] 04/10/2024 11:44:14 04/10/2024 12:31:15 Active or passive immunization 337607631 Z23 Will administer MMR as listed below.Loraine ent aware to follow up in at least 28 days for second dose. Administra tion of tetanus vaccine 999940550 Z23 Will administer as listed below. Essential hypertension 27185570 I10 134/76Disc ussed DASH diet and routine exercise. Type 2 shakir betes mellitus 53404512 E11.9 A1c 7.0 (08/2023) [id number] HEATHER Matthew [facility] [address] [facility] [place] [address] 05/13/2024 16:22:44 05/13/2024 16:47:19 [id number] HEATHER Matthew [facility] [address] [facility] [place] [address] 06/09/2024 16:16:53 06/09/2024 16:21:03 [id number] [facility]ER [facility] [place] [address] [facility] [address] [place] [address] 07/16/2024 09:42:53 07/16/2024 10:17:58 Adult health examination 881655819 Z00.00 Discussed medication compliance and routine follow up.Discuss ed healthy diet and routine exercise.Oli layneiewed vaccine records and made recommenda tions as needed.Enc ouraged annual eye and dental exams, as well as twice yearly dental cleanings. Will check screening labs as listed below. Screening for disorder 270916029 Z13.9 Hyperlipidemia 21042082 E78.5 Gastroesop hageal reflux disease without esophagitis 264676176 K21.9 Type 2 shakir betes mellitus 57218574 E11.9 A1c 7.0 (08/2023) Essential hypertension 88087098 I10 160/86rech teresa 144/80Disc ussed DASH diet and routine exercise. Asthma 478782281 J45.90 9 Acute uppe r respiratory infection 31600232 J06.9 Will treat as listed below. Follow up as needed. Iron defic iency anemia 54281608 D50.9 Vitamin D deficiency 347 04620 E55.9 Body mass index 40+ - severely obese 341707537 Z68.41 Weight: 236 poundsBMI: 43.2Contin ue healthy diet and routine exercise. Health Concerns Section Related Observation LastModified by Organization Detai ls LastModified Time None Recorded Concern Status LastModified by Organization Details LastModified Time None Recorded Advance Directives Directive N: Packet given Payers Encounter Date Sequence Insurance Name Policy Number Policy Sadler Covered Member ID Sadler Member ID Guarantor Name 02/14/2024 2 [place]ARE OR MEDICARE REPLACEMENT PRIMARY) Nuzhat Moralesstabelino [id number] Nuzhat Lustabelino 02/14/2024 1 [facility] (MEDICARE REPLACEMENT/AD VANTAGE - PPO) [id number] Nuzhat Atkinson [id number] Nuzhat Luster 04/10/2024 2 [place] REPLACEMENT PRIMARY) Nuzhat Atkinson [id number] Nuzhat Luster 04/10/2024 1 [facility] (MEDICARE REPLACEMENT/AD VANTAGE - PPO) [id number] Joivalnek Luster [id number] Joivalnek Luster 05/13/2024 2 [place] OR [place]ICARE REPLACEMENT PRIMARY) Joivalnek Luster [id number] Joivalnek Luster 05/13/2024 1 [facility] (MEDICARE REPLACEMENT/AD VANTAGE - PPO) [id number] Joivalnek Luster [id number] Joivalnek Luster 06/09/2024 2 [place] OR [place]ICARE REPLACEMENT PRIMARY) Joivalnek Luster [id number] Joivalnek Luster 06/09/2024 1 [facility] (MEDICARE REPLACEMENT/AD VANTAGE - PPO) [id number] Joivalnek Luster [id number] Joivalnek Luster 07/16/2024 2 [place] OR MEDICARE REPLACEMENT PRIMARY) Joivalnek Luster [id number] Joivalnek Luster 07/16/2024 1 [facility] (MEDICARE REPLACEMENT/AD VANTAGE - PPO) [id number] Joivalnek Luster [id number] Joivalnek Luster Notes Date Note Type Note Provider Name and Address Organization Details Recorded Time 04/10/2024 text/html Patient is a 48 year old female that presents to the office for routine follow up. Patient reports she is doing well and has no concerns at this time including chest pain and shortness of breath. 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 MARTI Matthew-Fan [address] [place] [address], [id number], [facility] [employer] [facility] 04/10/2024 13:00:10 07/16/2024 text/html Patient is a 49 year old female that presents to the office for Medicare Wellness. Patient reports she is doing well on her current medications. Patient reports she has been sick for the last couple of weeks with productive cough, no fevers, no chest pain and no worsening shortness of breath. Patient reports she has continued to use her routine inhalers without relief of symptoms. labs-ordered ([facility])Mammogra m-due in - UTologuard-due 2026Flu- declinesCovid- declinesTdap- UTD (03/2024)Shingles - declinesPneumonia - declines MARTI Matthew-C [address] [facility] [address], [place], [address], [place] - [facility] 07/16/2024 10:34:45 OBGyn Episode No OBEpisode recorded.
[2024-08-26 09:42] LABS: Basophils Percent Auto 0.5 % (0.2-1.2); Eosinophils Absolute Auto 0.1 K/mm3 (0-0.3); Eosinophils Percent Auto 1.4 % (0-4.4); Hemoglobin 13.8 g/dL (12.0-15.0); Immature Granulocyte Absolute 0.02 K/mm3 (0.00-0.031); Immature Granulocyte Percent A 0.3 % (0-0.5); Lymphocytes Absolute Auto 2.21 K/mm3 (0.9-3.2); Lymphocytes Percent Auto 33.2 % (18.3-44.2); Mean Corpuscular HGB Conc 31.4 g/dl (32-36); Mean Corpuscular Hemoglobin 29.2 pg (26-34); Monocytes Absolute Auto 0.7 K/mm3 (0.1-0.6); Monocytes Percent Auto 9.9 % (2.6-8.5); Neutrophils Absolute Auto 3.7 K/mm3 (1.3-6.7); Neutrophils Percent Auto 54.7 % (45.5-73.1); Platelet Count Result 305 k/mm3 (150-375); Red Blood Count 4.73 M/mm3 (4.2-5.4); Red Cell Distribution Width 13.8 % (11.5-14.5); White Blood Count 6.7 K/mm3 (4.5-10.0)
[2024-08-26 09:58] LABS: Iron 66 ug/dL (37-170)
[2024-08-26 09:59] LABS: Alanine Aminotransferase 22 U/L (6-35); Albumin Level 4.1 g/dL (3.5-5.1); Alkaline Phosphatase 92 U/L (38-126); Anion Gap 8 mmol/L (4-12); Aspartate Amino Transferase 24 U/L (14-36); Bilirubin Indirect 0.3 mg/dL (0-1.1); Bilirubin,Total 0.5 mg/dL (0.2-1.3); Blood Urea Nitrogen 16 mg/dL (7-17); Calcium 8.9 mg/dL (8.4-10.2); Carbon Dioxide 27 mmol/L (22-30); Chloride 103 mmol/L (98-107); Cholesterol 163 mg/dL (0-200); Estimated Glomerular Filt Rate > 60; Glucose 111 mg/dL (65-110); HDL Direct 49 mg/dL; Potassium 3.7 mmol/L (3.4-5.0); Sodium 138 mmol/L (137-145); Triglycerides 90 mg/dL (<150)
[2024-08-26 10:08] LABS: Percent Iron Saturation 17 % (20-50)
[2024-08-26 10:09] LABS: LDL Cholesterol Direct 80 mg/dL
[2024-08-26 11:00] LABS: Vitamin D 25 Hydroxy 25.3 ng/mL
== END 2024-08-26 08:59 | disposition home or self-care (01) ==
LOC: ANHLAB 09:00
PROVIDERS: PCP Nurse Practitioner Family; Visit Provider Nurse Practitioner Family
DX: E78.5 Hyperlipidemia, unspecified (principal); E11.9 Type 2 diabetes mellitus without complications; I10 Essential (primary) hypertension; D50.9 Iron deficiency anemia, unspecified; E55.9 Vitamin D deficiency, unspecified
CPT/HCPCS: 36415; 80053; 80061; 82248; 82306; 82728; 83036; 83540; 83550; 85025